=== PATIENT | male | born 1955 | race African-American/Black ===

== ENCOUNTER → 2017-12-14 | Outpatient (CLI) | payer BC ==
[2017-12-14 07:03] LABS: ABSOLUTE LYMPHOCYTES (AUTO) 1.6 10^3/uL (0.5-4.7); ABSOLUTE MONOCYTES (AUTO) 0.6 10^3/uL (0.1-1.4); BASOPHILS % (AUTO) 0.5 % (0-2); EOSINOPHILS % (AUTO) 0.5 % (0-6); HEMATOCRIT 41.6 % (37.9-51.0); HEMOGLOBIN 13.7 g/dL (13.5-17.0); LYMPHOCYTES % (AUTO) 25.5 % (13-45); MEAN CORPUSCULAR HEMOGLOBIN 31.7 pg (27.0-33.4); MEAN CORPUSCULAR VOLUME 96 fl (80-97); MONOCYTES % (AUTO) 10.1 % (3-13); PLATELET COUNT 113 10^3/uL (150-450); RED BLOOD COUNT 4.33 10^6/uL (4.35-5.55); RED CELL DISTRIBUTION WIDTH 14.8 % (11.5-14.0); SEGMENTED NEUTROPHILS % (AUTO) 63.4 % (42-78); TOTAL CELLS COUNTED % (AUTO) 100 %; WHITE BLOOD COUNT 6.3 10^3/uL (4.0-10.5)
[2017-12-14 07:06] LABS: AMORPHOUS SEDIMENT,URINE TRACE /HPF; APPEARANCE,URINE SLIGHTLY-CLOUDY; BILIRUBIN,URINE NEGATIVE (NEGATIVE); COLOR,URINE AMBER; GLUCOSE, URINE 50 mg/dL (NEGATIVE); KETONES,URINE 20 mg/dL (NEGATIVE); LEUKOCYTE ESTERASE,URINE LARGE (NEGATIVE); NITRITE,URINE NEGATIVE (NEGATIVE); PROTEIN,URINE 100 mg/dL (NEGATIVE); URINE SPECIFIC GRAVITY 1.018
[2017-12-14 07:11] LABS: ALANINE AMINOTRANSFERASE 51 U/L (21-72); ALBUMIN 4.7 g/dL (3.5-5.0); ALKALINE PHOSPHATASE 103 U/L (38-126); ANION GAP 15 (5-19); ASPARTATE AMINO TRANSFERASE 107 U/L (17-59); BILIRUBIN,DIRECT 0.4 mg/dL (0.0-0.4); BLOOD UREA NITROGEN 28 mg/dL (7-20); CARBON DIOXIDE 28 mmol/L (22-30); CHLORIDE 98 mmol/L (98-107); CHOLESTEROL 243.42 mg/dL (0-200); GLUCOSE 114 mg/dL (75-110); POTASSIUM 3.5 mmol/L (3.6-5.0); SODIUM 140.7 mmol/L (137-145); TOTAL PROTEIN 8.5 g/dL (6.3-8.2); TRIGLYCERIDES 64 mg/dL (<150); URIC ACID 6.4 mg/dL (3.5-8.5)
[2017-12-14 07:21] LABS: DIRECT LDL 76 mg/dL (<100)
[2017-12-14 07:27] LABS: FREE T4 (FREE THYROXINE) 1.04 ng/dL (0.78-2.19)
[2017-12-14 07:41] LABS: THYROID STIMULATING HORMONE 2.72 uIU/mL (0.47-4.68)
== END ==
LOC: LAB 06:40
PROVIDERS: ATTEND Internal Medicine
DX: F10.19 Alcohol abuse with unspecified alcohol-induced disorder (principal)
CPT/HCPCS: 36415; 80053; 80061; 81001; 84439; 84443; 84550; 85025

== ENCOUNTER 2020-04-05 06:53 | Emergency (ER) | payer SELFPAY ==
[2020-04-05 07:31] LABS: ABSOLUTE LYMPHOCYTES (AUTO) 0.9 10^3/uL (0.5-4.7); ABSOLUTE MONOCYTES (AUTO) 0.4 10^3/uL (0.1-1.4); ABSOLUTE NEUT (AUTO) 3.1 10^3/uL (1.7-8.2); BASOPHILS % (AUTO) 0.4 % (0-2); EOSINOPHILS % (AUTO) 0.1 % (0-6); HEMATOCRIT 35.5 % (37.9-51.0); HEMOGLOBIN 11.7 g/dL (13.5-17.0); MEAN CORPUSCULAR HEMOGLOBIN 32.5 pg (27.0-33.4); MEAN CORPUSCULAR HGB CONC 32.8 g/dL (32.0-36.0); MEAN CORPUSCULAR VOLUME 99 fl (80-97); MONOCYTES % (AUTO) 9.7 % (3-13); PLATELET COUNT 139 10^3/uL (150-450); RED BLOOD COUNT 3.58 10^6/uL (4.35-5.55); RED CELL DISTRIBUTION WIDTH 15.2 % (11.5-14.0); SEGMENTED NEUTROPHILS % (AUTO) 69.8 % (42-78); TOTAL CELLS COUNTED % (AUTO) 100 %; WHITE BLOOD COUNT 4.4 10^3/uL (4.0-10.5)
[2020-04-05] MEDS ORDERED: LORAZEPAM INJ 2 MG/1 ML VIAL IV ONE (07:31)
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
[2020-04-05 07:56] LABS: ALBUMIN 4.5 g/dL (3.5-5.0); ALKALINE PHOSPHATASE 89 U/L (38-126); ANION GAP 12 (5-19); ASPARTATE AMINO TRANSFERASE 49 U/L (17-59); BILIRUBIN,TOTAL 0.9 mg/dL (0.2-1.3); BLOOD UREA NITROGEN 17 mg/dL (7-20); CALCIUM 9.1 mg/dL (8.4-10.2); CARBON DIOXIDE 24 mmol/L (22-30); CHLORIDE 100 mmol/L (98-107); GLUCOSE 157 mg/dL (75-110); POTASSIUM 3.4 mmol/L (3.6-5.0); TOTAL PROTEIN 8.2 g/dL (6.3-8.2)
[2020-04-05 08:11] LABS: ALCOHOL < 10 mg/dL (NONE DETECTED)
--- NOTE | 2020-04-05 08:18 | RADIOLOGY REPORT (SQ) ---
EXAM DESCRIPTION: CT HEAD WITHOUT IMAGES COMPLETED DATE/TIME: 04/05/2020 8:10 am REASON FOR STUDY: seizure COMPARISON: MRI brain dated 12/24/2014 TECHNIQUE: Axial images acquired through the brain without intravenous contrast. Images reviewed wi th bone, brain and subdural windows. Additional sagittal and coronal reconstructions were generated. Images stored on PACS. All CT scanners at this facility use dose modulation, iterative reconstruction, and/or weight based d osing when appropriate to reduce radiation dose to as low as reasonably achievable (ALARA). [facility]: Dose Right [facility]: CareDose [facility]: Dose Right [facility]: Teradose 4D [facility]: [email or web address] RADIATION DOSE: CT Rad equipment meets quality standard of care and radiation dose reduction techniq ues were employed. CTDIvol: 53.2 mGy. DLP: 1017 mGy-cm. mGy. LIMITATIONS: None. FINDINGS: VENTRICLES: Prominent. CEREBRUM: No masses. No hemorrhage. No midline shift. Areas of low density in the white matter mos t likely due to chronic micro-vascular ischemic change. No evidence for acute infarction. CEREBELLUM: No masses. No hemorrhage. No alteration of density. No evidence for acute infarction. EXTRAAXIAL SPACES: Mild age-related involutional change. No fluid collections. No masses. ORBITS AND GLOBE: No intra- or extraconal masses. Normal contour of globe without masses. CALVARIUM: No fracture. PARANASAL SINUSES: Mucosal thickening in the maxillary sinuses right greater than left. SOFT TISSUES: No mass or hematoma. OTHER: No other significant finding. IMPRESSION: MILD CHRONIC CHANGES OF ATROPHY AND MICROVASCULAR ISCHEMIA. NO ACUTE PROCESS. EVIDENCE OF ACUTE STROKE: NO. TECHNICAL DOCUMENTATION: JOB ID: [id number] Quality ID # [id number]: Final reports with documentation of one or more dose reduction techniques (e.g., Au tomated exposure control, adjustment of the mA and/or kV according to patient size, use of iterative reconstruction technique) 2010 [employer]- All Rights Reserved Reading location - IP/workstation name: [email or web address]
--- NOTE | 2020-04-05 08:26 | RADIOLOGY REPORT (SQ) ---
EXAM DESCRIPTION: CHEST SINGLE VIEW IMAGES COMPLETED DATE/TIME: 04/05/2020 8:14 am REASON FOR STUDY: seizure COMPARISON: None. EXAM PARAMETERS: NUMBER OF VIEWS: One view. TECHNIQUE: Single frontal radiographic view of the chest acquired. RADIATION DOSE: NA LIMITATIONS: None. FINDINGS: LUNGS AND PLEURA: No opacities, masses or pneumothorax. No pleural effusion. MEDIASTINUM AND HILAR STRUCTURES: No masses. Contour normal. HEART AND VASCULAR STRUCTURES: Heart normal in size. Normal vasculature. BONES: No acute findings. HARDWARE: None in the chest. OTHER: No other significant finding. IMPRESSION: NO ACUTE RADIOGRAPHIC FINDING IN THE CHEST. TECHNICAL DOCUMENTATION: JOB ID: [id number] 2010 [employer]- All Rights Reserved Reading location - IP/workstation name: [email or web address]
[2020-04-05] MEDS ORDERED: NORMAL SALINE 1000 ML 1,000 ML with POTASSIUM CHLORIDE 20 MEQ, MAGNESIUM SULFATE 8 MEQ,... IV ONE ×5 (09:00)
[2020-04-05 11:36] LABS: APPEARANCE,URINE TURBID; BILIRUBIN,URINE NEGATIVE (NEGATIVE); COLOR,URINE YELLOW; GLUCOSE, URINE NEGATIVE (NEGATIVE); KETONES,URINE TRACE mg/dL (NEGATIVE); LEUKOCYTE ESTERASE,URINE LARGE (NEGATIVE); NITRITE,URINE NEGATIVE (NEGATIVE); PROTEIN,URINE 100 mg/dL (NEGATIVE); URINE SPECIFIC GRAVITY 1.017
[2020-04-05 11:50] LABS: URINE AMPHETAMINES SCREEN NEGATIVE; URINE BARBITURATES SCREEN NEGATIVE; URINE BENZODIAZEPINES SCREEN NEGATIVE; URINE COCAINE SCREEN NEGATIVE; URINE MARIJUANA (THC) SCREEN NEGATIVE; URINE METHADONE SCREEN NEGATIVE; URINE PHENCYCLIDINE SCREEN NEGATIVE
[2020-04-05 14:52] VITALS: BP 138/97
[2020-04-05] MEDS ORDERED: NORMAL SALINE 1000 ML 1,000 ML with POTASSIUM CHLORIDE 20 MEQ, MAGNESIUM SULFATE 8 MEQ,... IV SCH ×5 (18:00)
== END 2020-04-05 14:51 | disposition home or self-care (01) ==
LOC: ER 06:53
DX: F10.239 Alcohol dependence with withdrawal, unspecified (principal); Y90.0 Blood alcohol level of less than 20 mg/100 ml; R56.9 Unspecified convulsions; S00.512A Abrasion of oral cavity, initial encounter; X58.XXXA Exposure to other specified factors, initial encounter; Z91.010 Allergy to peanuts; Z87.891 Personal history of nicotine dependence
CPT/HCPCS: 99285; 96361; 96374; 36415; 80307 ×2; 83735; 85025; 80053; 81001; 71045; 70450; J3475; J2060; J3480; J3411; J7030; J3490

== ENCOUNTER 2020-06-09 10:21 | Emergency (ER) | payer SELFPAY ==
--- NOTE | 2020-06-09 10:33 | ER Document Report ---
ED Medical Screen (RME) - General Chief Complaint: Abdominal Pain Stated Complaint: ABDOMINAL PAIN/DIFFICULTY URINATING Time Seen by Provider: 06/09/20 10:28 Primary Care Provider: ERVIN MONTERO MD [Primary Care Provider] - Follow up as needed Notes: Patient presents complaining of urinary frequency and dysuria for the past week. Patient reports decreased output when voiding. Patient does not feel as though he is able to completely empty his bladder. Patient denies any fever, nausea vomiting or back pain. Patient does complain of lower pelvic tenderness. I have greeted and performed a rapid initial assessment of this patient. A comprehensive ED assessment and evaluation of the patient, analysis of test results and completion of the medical decision making process will be conducted by additional ED providers. TRAVEL OUTSIDE OF THE [place] IN LAST 30 DAYS: No - Related Data Allergies/Adverse Reactions: peanut Allergy (Verified 04/05/20 06:58) Past Medical History - Immunizations Hx Diphtheria, Pertussis, Tetanus Vaccination: No Physical Exam - Vital signs Vitals: Temp Pulse Resp BP Pulse Ox 98.2 F 107 H 16 149/100 H 100 06/09/20 10:27 06/09/20 10:27 06/09/20 10:27 06/09/20 10:27 06/09/20 10:27 - Abdominal Tenderness: Tender - Suprapubic Course - Vital Signs Vital signs: Temp Pulse Resp BP Pulse Ox 98.2 F 107 H 16 149/100 H 100 06/09/20 10:27 06/09/20 10:27 06/09/20 10:27 06/09/20 10:27 06/09/20 10:27 Doctor's Discharge - Discharge Referrals: ERVIN MONTERO MD [Primary Care Provider] - Follow up as needed
[2020-06-09 11:24] LABS: ABSOLUTE LYMPHOCYTES (AUTO) 1.1 10^3/uL (0.5-4.7); ABSOLUTE MONOCYTES (AUTO) 0.8 10^3/uL (0.1-1.4); ABSOLUTE NEUT (AUTO) 4.2 10^3/uL (1.7-8.2); BASOPHILS % (AUTO) 0.3 % (0-2); EOSINOPHILS % (AUTO) 0.3 % (0-6); HEMATOCRIT 39.8 % (37.9-51.0); HEMOGLOBIN 13.1 g/dL (13.5-17.0); LYMPHOCYTES % (AUTO) 18.2 % (13-45); MEAN CORPUSCULAR HGB CONC 32.9 g/dL (32.0-36.0); MEAN CORPUSCULAR VOLUME 97 fl (80-97); MONOCYTES % (AUTO) 13.1 % (3-13); PLATELET COUNT 264 10^3/uL (150-450); RED BLOOD COUNT 4.09 10^6/uL (4.35-5.55); RED CELL DISTRIBUTION WIDTH 14.4 % (11.5-14.0); SEGMENTED NEUTROPHILS % (AUTO) 68.1 % (42-78); TOTAL CELLS COUNTED % (AUTO) 100 %; WHITE BLOOD COUNT 6.2 10^3/uL (4.0-10.5)
[2020-06-09 11:46] LABS: ALBUMIN 4.6 g/dL (3.5-5.0); ALKALINE PHOSPHATASE 94 U/L (38-126); ANION GAP 16 (5-19); ASPARTATE AMINO TRANSFERASE 37 U/L (17-59); BILIRUBIN,DIRECT 0.4 mg/dL (0.0-0.4); BILIRUBIN,TOTAL 0.6 mg/dL (0.2-1.3); BLOOD UREA NITROGEN 48 mg/dL (7-20); CALCIUM 10.1 mg/dL (8.4-10.2); CARBON DIOXIDE 18 mmol/L (22-30); CHLORIDE 105 mmol/L (98-107); GLUCOSE 114 mg/dL (75-110); TOTAL PROTEIN 8.4 g/dL (6.3-8.2)
[2020-06-09] MEDS ORDERED: LIDOCAINE 2% URO-JET 5 ML KIT MM ONE ×2 (12:25→12:51)
[2020-06-09] MEDS ORDERED: TAMSULOSIN HCL 0.4 MG CAP.SR.24H PO ONE ×2 (13:10→13:59)
[2020-06-09] MEDS ORDERED: RINGERS SOLUTION,LACTATED 1,000 ML IV ONE ×2 (13:13→16:59)
--- NOTE | 2020-06-09 13:14 | ER Document Report ---
Entered by KARINA DOMINGUEZ SCRIBE 06/09/20 1225 Acting as scribe for:TYLER PAULSON MD ED GI/ - General Chief Complaint: Abdominal Pain Stated Complaint: ABDOMINAL PAIN/DIFFICULTY URINATING Time Seen by Provider: 06/09/20 10:28 Primary Care Provider: ERVIN MONTERO MD [Primary Care Provider] - Follow up as needed Mode of Arrival: Ambulatory Information source: Patient Notes: This 64 year old male patient presents to the emergency department today with complaints of lower abdominal pain intermittently for the last week. Patient reports he has had to strain to pass urine for the past week, is getting increasingly difficult. Last time he put much urine was a last night and his states it was 2 or 3 ounces. Here in the emergency room he was able to squeeze out a little bit of urine and when I was able to retrieve the urinal he used, it was probably 2 to 3 mL with a lot of sediment. TRAVEL OUTSIDE OF THE [place] IN LAST 30 DAYS: No - Related Data Allergies/Adverse Reactions: peanut Allergy (Verified 06/09/20 12:23) Home Medications: ativan 2mg PRN Past Medical History - General Information source: Patient - Social History Smoking Status: Former Smoker Cigarette use (# per day): No Chew tobacco use (# tins/day): No Smoking Education Provided: No Frequency of alcohol use: Occasional Drug Abuse: None Lives with: Family Family History: Reviewed & Not Pertinent Neurological Medical History: Reports: Hx Seizures - Alcohol withdrawal seizures Psychiatric Medical History: Reports: Hx Anxiety Surgical Hx: Negative - Immunizations Hx Diphtheria, Pertussis, Tetanus Vaccination: No Review of Systems - Review of Systems Constitutional: No symptoms reported EENT: No symptoms reported Cardiovascular: No symptoms reported Respiratory: No symptoms reported Gastrointestinal: See HPI, Abdominal pain Genitourinary: See HPI, Retention Male Genitourinary: No symptoms reported Musculoskeletal: No symptoms reported Skin: No symptoms reported Hematologic/Lymphatic: No symptoms reported Neurological/Psychological: No symptoms reported -: Yes All other systems reviewed and negative Physical Exam - Vital signs Vitals: Temp Pulse Resp BP Pulse Ox 98.2 F 107 H 16 149/100 H 100 06/09/20 10:27 06/09/20 10:27 06/09/20 10:27 06/09/20 10:27 06/09/20 10:27 - Notes Notes: Physical Exam: General: Alert, appears well. HEENT: Normocephalic. Atraumatic. PERRL. Extraocular movements intact. Oropharynx clear. Neck: Supple. Non-tender. Respiratory: No respiratory distress. Clear and equal breath sounds bilaterally. Cardiovascular: Regular rate and rhythm. Abdominal: Suprapubic tenderness, bladder is palpable. Normal Bowel Sounds. Back: No gross abnormalities. Extremities: Moves all four extremities. Upper extremities: Normal inspection. Normal ROM. Lower extremities: Normal inspection. No edema. Normal ROM. Neurological: Normal cognition. AAOx4. Normal speech. Psychological: Normal affect. Normal Mood. Skin: Warm. Dry. Normal color. Course - Re-evaluation Re-evalutation: 06/09/20 13:11 Attempts were made to pass a Barron catheter, using the Urojet Barron and a #12 coud by the PCT. They are unable to pass the catheter. I attempted with another Urojet Barron and found it required a lot of pressure to push the lidocaine through past the prostate. Afterwards I was still unable to pass the small coud catheter. 06/09/20 18:19 Patient has had 2 L of IV fluid so far, he has the third L running now. He has been urinating and states he does not feel like he has to push so hard to pass urine now. He did receive 2 doses of Flomax earlier. 06/09/20 19:33 The patient has had 3 L of IV fluid at this point. He continues to be able to urinate without any difficulty at this time. His urinalysis suggest urinary tract infection. The urine will be cultured, he will be placed on Keflex and Flomax and instructed to follow-up with his primary care provider Sunday. He is also advised to drink lots of fluids throughout the day in the evening every day to help restore his kidney function back to normal baseline. - Vital Signs Vital signs: Temp Pulse Resp BP Pulse Ox 98.6 F 86 16 156/97 H 98 06/09/20 16:09 06/09/20 16:09 06/09/20 16:09 06/09/20 16:09 06/09/20 16:09 - Laboratory Result Diagrams: 06/09/20 10:50 06/09/20 10:50 Laboratory results interpreted by me: 06/09/20 06/09/20 06/09/20 10:50 10:50 18:20 RBC 4.09 L Hgb 13.1 L RDW 14.4 H Kent % (Auto) 13.1 H Carbon Dioxide 18 L BUN 48 H Creatinine 2.75 H Est GFR ( Amer) 28 L Est GFR (MDRD) Non-Af 23 L Glucose 114 H Total Protein 8.4 H Urine Protein >=500 H Urine Ketones TRACE H Urine Blood SMALL H Ur Leukocyte Esterase LARGE H Discharge - Discharge Clinical Impression: Acute urinary retention, Acute kidney injury (nontraumatic), Dehydration BPH (benign prostatic hyperplasia) Qualifiers: Lower urinary tract symptom presence: symptoms present Lower urinary tract symptom detail: straining on urination Qualified Code(s): N40.1 - Benign prostatic hyperplasia with lower urinary tract symptoms Urinary tract infection Qualifiers: Urinary tract infection type: site unspecified Hematuria presence: with hematuria Qualified Code(s): N39.0 - Urinary tract infection, site not specified Condition: Stable Disposition: HOME, SELF-CARE Additional Instructions: Urinary Tract Infection: Your evaluation indicates that you have a urinary tract infection. This is due to germs growing in the bladder. This is a common problem. This infection usually responds quickly to antibiotics. Your antibiotic should be taken exactly as prescribed. Drink plenty of fluids -- three to four quarts a day. Occasionally, a bladder anesthetic will be prescribed to help stop the feeling of urgency until the antibiotic has a chance to clear the infection. This may cause your urine to be dark orange. Certain urine infections require a culture. If the doctor obtained a culture, the results will be back in two days. You should call to see if a change in treatment is needed. A repeat urinalysis after you finish treatment is often recommended. The physician will let you know if further testing is required. Call the doctor if you develop fever, chills, flank pain, inability to urinate, or blood in the urine. Urinary Retention: Urinary retention is inability to empty the bladder. It can result from a urine infection, or from mechanical problems such as an enlarged prostate gland or swelling of the urethra. Drugs or alcohol can also lead to urine retention. Sometimes drugs are used to stimulate the bladder if the physician feels that inadequate bladder contraction is the cause. If the condition leading to the retention is a chronic one, such as an enlarged prostate, you will be referred to a specialist for further care. Call the physician or return if you develop fever, flank or back pain, pain on urination, or recurrent difficulty passing the urine. You most likely have a condition called benign prostatic hypertrophy which is enlargement of the prostate gland. It is common in men as they age, and causes problems urinating. The urine exam today suggest you may have a urinary tract infection, and that can frequently make pre-existing prostatic hypertrophy acutely worse causing an inability to urinate. The lab evaluation of your blood today showed that your kidneys are starting to go bad. This is probably because you have not been drinking enough fluids during this time that you have trouble passing your urine. You will be prescribed an antibiotic called cephalexin to take for the next few days. You will be prescribed a medication called Flomax which she received earlier that seems to help you pass your urine. It is very important that you drink lots of fluids throughout the day and evening every day to help restore your kidney function back to its baseline. Follow-up with your doctor Sunday to recheck your lab work to be sure your kidney function has returned to normal, and for referral to a urologist for further evaluation of your prostate. RETURN TO THE EMERGENCY ROOM IF ANY NEW OR WORSENING SYMPTOMS. Prescriptions: Tamsulosin HCl [Flomax 0.4 mg Cap.sr] 0.4 mg PO DAILY #30 cap.sr.24h Cephalexin Monohydrate [Keflex 500 mg Capsule] 500 mg PO TID #15 capsule Referrals: ERVIN MONTERO MD [Primary Care Provider] - Follow up as needed I personally performed the services described in the documentation, reviewed and edited the documentation which was dictated to the scribe in my presence, and it accurately records my words and actions.
[2020-06-09] MEDS ORDERED: NORMAL SALINE 1000 ML 1,000 ML IV ONE (14:00)
[2020-06-09 19:03] LABS: APPEARANCE,URINE TURBID; BILIRUBIN,URINE NEGATIVE (NEGATIVE); COLOR,URINE AMBER; GLUCOSE, URINE NEGATIVE (NEGATIVE); KETONES,URINE TRACE mg/dL (NEGATIVE); LEUKOCYTE ESTERASE,URINE LARGE (NEGATIVE); NITRITE,URINE NEGATIVE (NEGATIVE); PROTEIN,URINE >=500 mg/dL (NEGATIVE); URINE SPECIFIC GRAVITY 1.013; UROBILINOGEN,URINE NEGATIVE mg/dL (<2.0)
[2020-06-09] MEDS ORDERED: CEPHALEXIN 500 MG CAPSULE PO ONE (19:15)
[2020-06-09 20:22] VITALS: BP 136/89
== END 2020-06-09 20:22 | disposition home or self-care (01) ==
LOC: ER 10:21
DX: N40.1 Benign prostatic hyperplasia with lower urinary tract symptoms (principal); R33.8 Other retention of urine; N39.0 Urinary tract infection, site not specified; R31.9 Hematuria, unspecified; N17.9 Acute kidney failure, unspecified; E86.0 Dehydration; F41.9 Anxiety disorder, unspecified; Z87.891 Personal history of nicotine dependence; Z91.010 Allergy to peanuts
CPT/HCPCS: 99284; 96360; 96361; 36415; 87086; 85025; 80053; 81001; J7030; J7120; J3490